=== PATIENT | male | born 1960 | race Caucasian/White ===

== ENCOUNTER 2018-01-04 14:11 | Day surgery (SDC) | payer OTHER, SELFPAY ==
[2018-01-03 13:51] VITALS: BMI 26.4
[2018-01-04 14:48] VITALS: BP 116/72; PULSE 53; RESP 16; TEMP 36.6; O2SAT 100; BMI 26.4
[2018-01-04] MEDS: LACTATED RINGERS 1,000 ML 100 ML IV (15:19)
--- NOTE | 2018-01-04 16:10 | PM.PREOP ---
Pre-operative Note Interval Note Pre-op Check: Yes History & Physical exam performed today by Physician Changes: No
[2018-01-04] MEDS: CEFAZOLIN 2 GM/100 ML FROZ.PIGGY IV (16:25)
--- NOTE | 2018-01-04 16:41 | SUR.OPER ---
Supine on padded OR bed, head on pillow, arms secured on padded arm boards at <90 degrees abduction, legs uncrossed, safety belt at thigh, tape over blanket over lower legs.
[2018-01-04] MEDS: BUPIVACAINE 0.5% (PF) VIAL 30 ML INJ (16:56)
[2018-01-04 17:34] VITALS: BP 106/72; PULSE 72; RESP 12; TEMP 36.8; O2SAT 97
[2018-01-04 17:37] VITALS: BP 110/69; PULSE 66; RESP 14; O2SAT 96
[2018-01-04 17:41] VITALS: BP 107/77; PULSE 61; RESP 14; O2SAT 95
[2018-01-04 17:46] VITALS: BP 100/73; PULSE 58; RESP 16; O2SAT 95
--- NOTE | 2018-01-04 17:47 | P.OP_ITS ---
Operative Date/Time/Diagnoses Date of procedure: 01/04/18 Time of procedure: 17:28 Pre-op diagnosis: Reducible left inguinal hernia Post-op diagnosis: same (Direct hernia) Procedure & Clinicians Procedure: Repair of left inguinal hernia using plug and patch technique Same procedure as scheduled: Yes Surgeon: Carrington Montgomery Click Yes if Unassisted: Yes Anesthesia Type: General Operative Notes Findings: Direct hernia. Lipoma of the cord. Closure Type: primary Specimen(s): none sent Implants & Drains: Mesh medium plug Estimated Blood Loss (mL): 10 Blood products transfused: none Procedure in detail: The patient was placed supine on the operating room table and underwent general LMA anesthesia. He was prepped and draped in the usual fashion. A transverse incision was made overlying the internal ring and carried down to the level of the external oblique. The external oblique was opened parallel with its fibers through the external ring. The cord structures were elevated. The cremaster was opened proximally and search made for an indirect sac. None was found that there was a lipoma of the cord that was from surrounding structures and ligated proximally. Distal portion was removed. A medium plug was placed in the defect created and tacked into place with interrupted 0 Ethibond suture. The floor was examined and was found to be quite attenuated. I use it 0 Ethibond suture to reapproximate the medial transversalis to the lateral iliopubic tract an edge of inguinal ligament.. A patch was placed across the floor and tacked at the pubic tubercle, the posterior lamella of the anterior rectus sheath, the ilioinguinal ligament, and superior lateral to the cord. The opening was modified as necessary to prevent tight constriction of the cord. Sutures of 0 Tycron were used to secure the mesh. The external oblique was closed with a running 3 0 Polysorb. The subcu was closed with interrupted 3 0 Polysorb. The skin was closed with a running 4 0 Polysorb subcuticular stitch and Steri-Strips. Dressing was applied , the patient was awakened, and the patient was taken to the recovery area in good condition. Complications: none Condition: stable Disposition: PACU Plan for aftercare: Two weeks January 17 and at 1:15 p.m.
[2018-01-04] MEDS: HYDROCODONE/ACET 5/325 TABLET 1 TAB PO (18:10)
[2018-01-04 18:16] VITALS: TEMP 36.7
== END 2018-01-04 18:25 | disposition home or self-care (01) ==
PROVIDERS: Visit Provider Specialist
PROC: (CPT 49505; principal; 2018-01-04 15:45)
DX: K40.90 Unilateral inguinal hernia, without obstruction or gangrene, not specified as recurrent (principal); D17.6 Benign lipomatous neoplasm of spermatic cord
CPT/HCPCS: 49505; C1781; J0690; J1100; J2405; J2704; J3010

== ENCOUNTER → 2020-06-02 07:02 | Outpatient (CLI) | payer BC, SELFPAY ==
[2020-06-02 08:01] LABS: Add Manual Diff / Slide Review NO; Basophils Absolute Auto 0 /uL (0-100); Basophils Percent Auto 0.6 % (0-2); Eosinophils Absolute Auto 200 /uL (0-450); Eosinophils Percent Auto 5.4 % (2-4); Hematocrit 41.6 % (41-53); Hemoglobin 14.1 g/dL (13.5-17.5); Lymphocytes Absolute Auto 1200 /uL (1100-4500); Lymphocytes Percent Auto 26.5 % (25-40); Mean Corpuscular Hemoglobin 29.6 PG (26-34); Monocytes Absolute Auto 200 /uL (0-900); Monocytes Percent Auto 4.7 % (3-14); Neutrophils Absolute Auto 2700 /uL (1500-7000); Neutrophils Percent Auto 62.8 % (50-75); Platelet Count 192 X10^3/uL (150-400); Red Blood Cell Count 4.78 X10^6/uL (4.5-5.9); Red Cell Distribution Width 13.8 % (11.6-14.8); White Blood Cell Count 4.4 X10^3/uL (4.5-11.0)
[2020-06-02 08:25] LABS: Alanine Aminotransferase 29 IU/L (<50); Albumin 4.1 g/dL (3.5-5.0); Albumin Globulin Ratio 1.6 (1.0-2.8); Alkaline Phosphatase 76 U/L (38-126); Aspartate Aminotransferase 34 IU/L (17-59); BUN Creatinine Ratio 21.4 (6-22); Bilirubin Total 0.3 mg/dL (0.2-1.3); Blood Urea Nitrogen 18 mg/dL (9-20); Calcium 8.9 mg/dL (8.4-10.2); Carbon Dioxide 28 mmol/L (22-32); Chloride 105 mmol/L (98-107); Cholesterol 188 mg/dL (140-199); Estimated Glomerular Filt Rate > 60.0 mL/min (>60); Globulin 2.5 g/dL (1.7-4.1); Glucose 98 mg/dL (80-110); HDL Cholesterol 77 mg/dL (40-60); HEMOLYSIS < 15 (0-50); LDL Cholesterol Calculated 104 mg/dL (<100); Potassium 4.3 mmol/L (3.4-5.1); Sodium 137 mmol/L (137-145); Total Protein 6.6 g/dL (6.3-8.2); Triglycerides 36 mg/dL (35-150)
[2020-06-02 08:53] LABS: Prostate Specific Antigen 0.439 ng/mL (0.10-4.00)
== END ==
PROVIDERS: PCP Nurse Practitioner; Referring Provider Nurse Practitioner; Visit Provider Nurse Practitioner
DX: Z00.00 Encounter for general adult medical examination without abnormal findings (principal)
CPT/HCPCS: 36415; 80053; 80061; 84153; 85025

== ENCOUNTER → 2020-09-02 10:37 | Outpatient (CLI) | payer OTHER, SELFPAY ==
--- NOTE | 2020-09-02 | DI.US.S_ITS ---
PROCEDURE: US RENAL COMPLETE INDICATIONS: Retention of urine, unspecified TECHNIQUE: Real-time scanning was performed of the kidneys and bladder, with image documentation. COMPARISON: None. FINDINGS: Kidneys: Kidneys are normal in size. Right kidney measures 11.3 cm long; left kidney measures 12.2 cm long. Right renal cortical thickness is 1.6 cm; left renal cortical thickness is 1.7 cm. Renal cortical echotexture is normal. No hydronephrosis or nephrolithiasis. No suspicious solid mass lesions. Right parapelvic cysts are present. Left cyst is noted measuring 2.5 x 2.4 x 2.5 cc. Bladder: Pre-void bladder volume is 530 mL. Post-void residual is 342 mL. Pre-void images demonstrate no intraluminal masses or stones. On pre-void images, neitherureteral jets are noted with color Doppler interrogation. (Of note, ureteral jets may not be detectable in up to 25% of cases due to insufficient differences in specific gravity between ureteral and bladder urine). Bladder diverticulum. There is suspected presence of penile prosthesis. Miscellaneous: No free pelvic fluid. IMPRESSION: 1. Simple left renal cyst. 2. Bladder diverticulum. Dictated by: Laverne Foote M.D. on 09/02/2020 at 16:02 Approved by: Laverne Foote M.D. on 09/02/2020 at 16:09
== END ==
PROVIDERS: PCP Nurse Practitioner; Referring Provider Physician Assistant Medical; Visit Provider Physician Assistant Medical
DX: R33.9 Retention of urine, unspecified (principal)
CPT/HCPCS: 76770

== ENCOUNTER 2021-06-08 23:49 | Emergency (ER) | payer OTHER, SELFPAY ==
[2021-06-08 23:50] VITALS: BP 151/85; PULSE 64; RESP 14; TEMP 36.6; O2SAT 95; BMI 25.7
--- NOTE | 2021-06-09 00:02 | ED_ITS ---
HPI - Male Genitourinary General Chief complaint: Urogenital-Male Stated complaint: NEEDS A CATHERTER PUT IN PER DOCTOR Time Seen by Provider: 06/08/21 23:52 History of Present Illness HPI Narrative: 60-year-old male nonsmoker with history of recent urologic procedure presents with his in the chief complaint of inability to urinate since about 8:00 p.m.. Last week he was seen and evaluated by the [facility] and had instrumentation including a urolift which went well. He had a catheter in over the course of the weekend and was seen in the office on Monday morning. Per the patient he passed a post void residual without difficulty and was doing well until this evening. He contacted his urologist and was encouraged to come see us for help. He has fullness and difficulty starting a urine stream worsening over the course of the evening. He denies fever or chills. He has no nausea, vomiting or diarrhea. Related Data Home Medications Medication Instructions Recorded Confirmed fluticasone propionate 50 1 spray INTRANASAL DAILY 01/04/18 03/17/21 mcg/actuation nasal spray,suspension (Flonase Allergy Relief) Resmed Airsense 10 CPAP #1 ea 07/17/18 03/17/21 tamsulosin 0.4 mg capsule 0.8 mg PO DAILY cap 03/17/21 03/17/21 Previous Rx's Medication Instructions Recorded oxycodone-acetaminophen 5 mg-325 See Rx Instructions .ROUTE 01/04/18 mg tablet (Percocet) .COMPLEX PRN #14 tab Allergies Allergy/AdvReac Type Severity Reaction Status Date / Time No Known Drug Allergies Allergy Verified 03/17/21 16:33 Review of Systems Review of Systems Narrative: GENERAL: Denies chills, fatigue, malaise, fever, sweats. HEENT: Denies sinus pain, ear pain, sore throat, difficulty swallowing, dizziness. RESPIRATORY: Denies dyspnea, cough, wheezing, hemoptysis, sputum. CARDIOVASCULAR: Denies chest pain, palpitations, orthopnea, edema, GASTROINTESTINAL: Denies nausea, vomiting, abdominal pain, diarrhea, constipation, melena. : See HPI MUSCULOSKELETAL: denies weakness, joint pain, or bony pain SKIN: Denies rash, skin lesions, or other NEUROLOGIC: Denies weakness, headache, numbness, change in speech, confusion, seizures, incoordination. PSYCHIATRIC: No concerning psychosocial issues. 12 point review of systems is negative except for those stated above Patient History Medical History (Updated 06/09/21 @ 00:42 by Gerardo Chairez DO) BPH (benign prostatic hyperplasia) Surgical History H/O: vasectomy History of umbilical hernia repair Family History Father Hypertension Prostate cancer Sister Breast cancer Social History marital status: household members: spouse occupational status: employed Smoking Status: Never smoker substance use type: does not use Smoking Status: Never smoker Substance Use Type: does not use Exam Narrative Exam Narrative: GEN: AOx3 and in mild distress EYES: Pupils are equal, round, and reactive to light and accommodation. Extraoccular muscles are intact bilaterally. There is no subconjunctival hemorrhage or exudate. CHEST: Lungs are clear to auscultation bilaterally and free of wheezes, rales, or rhonchi. Heart rate is regular rhythm, there are no murmurs, clicks, rubs, or gallops. There is no chest wall tenderness. ABD: Abdomen is minimally distended overlying the bladder with tenderness. There is no guarding or rebound. Bowel sounds are normal in all 4 quadrants. There is no mass or organomegaly. EXT: Full painless ROM of all extremities with no loss of sensation or strength. SKIN: Warm, pink, and dry. No erythema or rash Initial Vital Signs Initial Vital Signs: Vital Signs Temperature 97.9 F 06/08/21 23:50 Pulse Rate 64 06/08/21 23:50 Respiratory Rate 14 06/08/21 23:50 Blood Pressure 151/85 H 06/08/21 23:50 Pulse Oximetry 95 06/08/21 23:50 Course Course Course Narrative: Bladder scan notes over [address] [place] catheter, which is done successfully and results and a near immediate and complete resolution of symptoms. MDM - Male Genitourinary Lab Data Labs: Lab Results 06/09/21 Range/Units 00:15 Urine Color Yellow Urine Appearance Cloudy Urine pH 5.0 (4.5-8.0) Ur Specific [place] 1.015 (1.000-1.035) Urine Protein 1+ H (Negative) Urine Glucose (UA) Negative (Negative) g/dL Urine Ketones Negative (NEGATIVE) Urine Occult Blood 3+ H (Negative) Urine Nitrate Negative (Negative) Urine Bilirubin Negative (NEGATIVE) Urine Urobilinogen 0.2 (0.2) E.U./dL Ur Leukocyte Esterase Negative (NEGATIVE) Urine RBC 30-100/hpf H (0-5/HPF) Urine WBC 0-1/hpf (0-5/HPF) Ur Squamous Epith Cells 0-1 /hpf (0-5/HPF) Urine Bacteria Few (2-10) H (None) Urine Mucus 1+ H (Negative) Ur Culture Indicated? Cult not indicated Discharge Plan Departure Patient Disposition: Home Clinical Impression: Acute retention of urine Instructions: DI for Urinary Retention in Men Activity Restrictions/Additional Instructions: *You have been diagnosed with [acute urinary retention] *What to do: *Please continue to take your regular medications as directed. [ ] New medication prescriptions sent to your pharmacy: [ ] [ ] New medication written as a paper prescription [x ] No new medications given *Please follow up with your primary care provider in 2-3 days, call for an appointment. Let them know you were seen in the Emergency Department and that we ask that you be seen in follow up. We will electronically transmit a record of today's note if your PCP is in our system *If you do not have a primary care provider please contact the [facility] Resource line at [phone]. They will ask some questions about your medical history and help get you set up with a doctor in the community. *Return to Emergency Department if you should have any new, worsening or concerning symptoms, such as [fever greater than 101 F, shaking chills, worsening pain, persistent vomiting or other bothersome symptoms] Prescriptions: No Action tamsulosin 0.4 mg capsule 0.8 mg PO DAILY 0RF fluticasone propionate [Flonase Allergy Relief] 50 mcg/actuation [place],Suspension 1 spray INTRANASAL DAILY 0RF oxycodone-acetaminophen [Percocet] 5-325 mg tablet See Rx Instructions .ROUTE .COMPLEX PRN (Reason: painful procedure) Qty: 14 0RF Rx Instructions: Take 1 or 2 pills every 6 hr if needed for pain (DME) Resmed Airsense 10 CPAP Qty: 1 0RF Dose Instruction: As directed Label Comments: Pressure: 5-10 cmH2O DME: [facility] Rx Instructions: As directed Referrals: Taylor Zaragoza ARNP [Primary Care Provider] -
[2021-06-09 00:37] LABS: Appearance Urine UA CLOUDY; Bilirubin Urine UA NEGATIVE (NEGATIVE); Color Urine UA YELLOW; Glucose Urine UA NEGATIVE (Negative); Ketones Urine UA NEGATIVE (NEGATIVE); Leukocyte Esterase Urine UA NEGATIVE (NEGATIVE); Nitrite Urine UA NEGATIVE (Negative); Occult Blood Urine UA 3+ (Negative); Protein Urine UA 1+ (Negative); Specific Gravity Urine UA 1.015 (1.000-1.035); Urobilinogen Urine UA 0.2 E.U./dL (0.2)
[2021-06-09 00:45] LABS: Bacteria Urine Few (2-10); RBC Urine 30-100/HPF (0-5/HPF); Squamous Epithelial Cell Urine 0-1 /HPF (0-5/HPF); WBC Urine 0-1/HPF (0-5/HPF)
[2021-06-09 00:46] LABS: Culture Indicated Urine Cult Not Indicated; Mucus Urine 1+ (Negative)
== END 2021-06-09 01:08 | disposition home or self-care (01) ==
PROVIDERS: Emergency Provider Emergency Medicine; PCP Nurse Practitioner
DX: R33.9 Retention of urine, unspecified (principal)
CPT/HCPCS: 51702; 51798; 81001; 99283

== ENCOUNTER → 2022-12-21 07:13 | Outpatient (CLI) | payer OTHER, SELFPAY ==
[2022-12-21 07:50] LABS: Add Manual Diff / Slide Review NO; Basophils Absolute Auto 0 /uL (0-100); Basophils Percent Auto 0.7 % (0-2); Eosinophils Absolute Auto 200 /uL (0-450); Eosinophils Percent Auto 3.9 % (2-4); Hematocrit 41.7 % (41-53); Hemoglobin 14.3 g/dL (13.5-17.5); Lymphocytes Absolute Auto 1000 /uL (1100-4500); Lymphocytes Percent Auto 20.8 % (25-40); Mean Corpuscular HGB Conc 34.3 % (30-36); Mean Corpuscular Hemoglobin 29.7 PG (26-34); Mean Corpuscular Volume 86.6 fL (80-100); Monocytes Absolute Auto 300 /uL (0-900); Monocytes Percent Auto 5.4 % (3-14); Neutrophils Absolute Auto 3500 /uL (1500-7000); Neutrophils Percent Auto 69.2 % (50-75); Platelet Count 219 X10^3/uL (150-400); Red Blood Cell Count 4.81 X10^6/uL (4.5-5.9); Red Cell Distribution Width 14.8 % (11.6-14.8)
[2022-12-21 08:13] LABS: Alanine Aminotransferase 23 IU/L (<50); Albumin 4.1 g/dL (3.5-5.0); Albumin Globulin Ratio 1.4 (1.0-2.8); Alkaline Phosphatase 69 U/L (38-126); Aspartate Aminotransferase 29 IU/L (17-59); BUN Creatinine Ratio 17.7 (6-22); Bilirubin Total 0.6 mg/dL (0.2-1.3); Blood Urea Nitrogen 14 mg/dL (9-20); Carbon Dioxide 27 mmol/L (22-32); Chloride 102 mmol/L (98-107); Cholesterol 210 mg/dL (140-199); Estimated Glomerular Filt Rate > 60 mL/min (>60); Globulin 2.9 g/dL (1.7-4.1); Glucose 98 mg/dL (80-110); HDL Cholesterol 69 mg/dL (40-60); HEMOLYSIS < 15 (0-50); LDL Cholesterol Calculated 128 mg/dL (<100); Potassium 4.5 mmol/L (3.4-5.1); Sodium 136 mmol/L (137-145); Triglycerides 63 mg/dL (35-150)
[2022-12-21 08:43] LABS: Prostate Specific Antigen 0.169 ng/mL (0.10-4.00)
[2022-12-22 16:57] LABS: HIV 1 & 2 Ab/Ag 4th Gen Combo NEGATIVE (NEGATIVE); Hep C Virus Ab w/Reflex Quant NEGATIVE s/c (NEGATIVE)
== END ==
PROVIDERS: PCP Family Medicine; Referring Provider Family Medicine; Visit Provider Family Medicine
DX: Z91.09 Other allergy status, other than to drugs and biological substances (principal); G47.33 Obstructive sleep apnea (adult) (pediatric); Z98.890 Other specified postprocedural states; Z00.00 Encounter for general adult medical examination without abnormal findings; N40.0 Benign prostatic hyperplasia without lower urinary tract symptoms
CPT/HCPCS: 36415; 80053; 80061; 83036; 84153; 85025; 86803; 87389

== ENCOUNTER 2023-10-03 14:11 | Day surgery (SDC) | payer OTHER, MEDICARE, SELFPAY ==
--- NOTE | 2023-10-03 | PATH_ITS ---
[facility] Accession Number: [id number] No. of containers..01 Tissue . 01 Material submitted: . colon - SIGMOID POLYP . 01 Diagnosis: SIGMOID COLON, POLYP: Hyperplastic polyp. [facility] 10/06/2023 1012 Local . 01 Electronically signed: . Vijaya Trejo MD, Pathologist NPI- [id number] . 01 Gross description: . Received in formalin with two patient identifiers and sigmoid polyp, is a single nichols soft tissue fragment, 0.4 cm in greatest dimension. Submitted in A1. ([id number]) /MRV 10/04/2023 1732 Local . 01 Pathologist provided ICD-10: K63.5 . 01 CPT . 999686 Specimen Comment: A courtesy copy of this report has been sent to [phone] Performed at: [address] [facility] [address], [place], [place] [id number] MD Joshua Guerra MD Phone: [phone]
[2023-10-03 14:24] VITALS: BP 125/75; PULSE 16; RESP 51; TEMP 36.4; O2SAT 99
[2023-10-03] MEDS: LACTATED RINGERS 1,000 ML 42 ML IV (14:33)
--- NOTE | 2023-10-03 15:00 | P.HP_ITS ---
History of Present Illness History of Present Illness Date Patient Seen: 10/03/23 Time Patient Seen: 15:01 Chief complaint: Screening Colonoscopy Narrative: 63-year-old man here for screening colonoscopy. Last colonoscopy 12 years ago normal. No family history of colon cancer. No abdominal concerns today. [facility] Medical History (Updated 12/27/22 @ 19:59 by Tram Anton) Allergies Hearing loss Skin cancer Obstructive sleep apnea BPH (benign prostatic hyperplasia) Surgical History (Updated 12/27/22 @ 19:59 by Tram Anton) Anesthesia H/O right knee surgery History of prostate surgery (~08/2021) H/O: vasectomy History of umbilical hernia repair Family History (Updated 12/27/22 @ 19:59 by Tram Anton) Father Hypertension Prostate cancer Sister Breast cancer Social History marital status: household members: spouse occupational status: employed Smoking Status: Former smoker alcohol intake: current substance use type: does not use Meds Home Medications and Allergies Home Medications Medication Instructions Recorded Confirmed Type fluticasone propionate 50 1 spray intranasal DAILY 01/04/18 10/03/23 History mcg/actuation nasal spray,suspension (Flonase Allergy Relief) [place] 2 #1 ea 09/15/21 05/20/23 History finasteride 5 mg tablet 5 mg PO DAILY 09/15/21 10/03/23 History Allergies Allergy/AdvReac Type Severity Reaction Status Date / Time No Known Drug Allergies Allergy Verified 05/20/23 07:16 Exam Vital Signs (past 8 hours): - 10/03/23 14:24 Temperature 97.6 F Pulse Rate 16 L Respiratory Rate 51 H Blood Pressure 125/75 Pulse Oximetry 99 Oxygen Delivery Method Room Air Oxygen Delivery Method Room Air Narrative Exam Narrative: General adult man alert oriented no acute distress Chest nonlabored respiration Extremities warm well perfused Assessment & Plan Assessment & Plan narrative: The patient requires colorectal screening and colonoscopy is recommended. Technical details were discussed. Risks, benefits, alternatives explained. Risks including but not limited to myocardial infarction, aspiration, bleeding, pain, missed lesion, incomplete examination, need for further radiographic studies, intestinal injury, and need for major abdominal surgery were discussed. All questions were answered to their satisfaction, and they are in agreement with this plan.
--- NOTE | 2023-10-03 15:01 | P.OP.COLON_ITS ---
Operative Date/Time/Diagnoses Date of procedure: 10/03/23 Time of procedure: 15:01 Pre-op diagnosis: Colorectal screening Post-op diagnosis: other (Colonic polyp x1) Procedure & Clinicians Study performed: Screening colonoscopy Same procedure as scheduled: Yes Indications: Colorectal screening Surgeon: Cleveland Corcoran Procedure Notes Procedure in detail: The history and physical was performed/updated and the patient is ASA class is 2. The procedure was discussed in detail with the patient. Potential risks complications including infection, bleeding, missed diagnosis, perforation, need for surgery, and were explained. Their questions were answered and informed consent was obtained. Patient was brought to the procedure room and placed standard monitoring equipment. The patient's vital signs were monitored continuously throughout the entire procedure. Prior to starting time-out was performed. The patient was placed in the left lateral recumbent position. Procedural sedation was administered by anesthesia. Examination began with a thorough inspection of the perianal area there was no evidence of fissures, fistulae, external hemorrhoids or cutaneous malignancy. The colonoscopy scope was then placed into the anal ca nal and was advanced to the cecum, which was identified by the ileocecal valve, the appendiceal orifice and the confluence of the taenia. The scope was then slowly withdrawn examining colon thoroughly in all directions, irrigating it of any residual stool. The scope was retroflexed within the rectum The patient tolerated the procedure well. They will be discharged once criteria are met. The prep was of good/excellent quality. The withdrawl time was 6 minutes. FINDINGS * Sigmoid polyp 3 mm removed with biopsy forceps * Diverticulosis of descending colon. Specimen(s): other (Sigmoid polyp) Impression: Colonic polyp x1 Post-procedure Recommendations: High fiber diet Plan for aftercare: Follow up is dependent on pathology findings likely 5 years Disposition: same day surgery
[2023-10-03 15:31] VITALS: BP 120/72; PULSE 65; RESP 18; TEMP 36.6; O2SAT 98
[2023-10-03 15:37] VITALS: BP 118/77; PULSE 65; RESP 17; TEMP 36.6; O2SAT 97
[2023-10-03 15:42] VITALS: BP 107/62; PULSE 60; RESP 20; TEMP 36.5; O2SAT 97
== END 2023-10-03 15:55 | disposition home or self-care (01) ==
PROVIDERS: PCP Family Medicine; Referring Provider Surgery; Visit Provider Surgery
PROC: 0DJD8ZZ Inspection of Lower Intestinal Tract, Via Natural or Artificial Opening Endoscopic (ICD-10-PCS; CPT 45378; principal; 2023-10-03 15:15)
DX: Z12.11 Encounter for screening for malignant neoplasm of colon (principal); K57.30 Diverticulosis of large intestine without perforation or abscess without bleeding; K63.5 Polyp of colon
CPT/HCPCS: 45380; J2704

== ENCOUNTER → 2023-11-29 06:57 | Outpatient (CLI) | payer OTHER, MEDICARE, SELFPAY ==
[2023-11-29 08:06] LABS: Add Manual Diff / Slide Review NO; Basophils Absolute Auto 0 /uL (0-100); Basophils Percent Auto 0.5 % (0-2); Eosinophils Absolute Auto 300 /uL (0-450); Eosinophils Percent Auto 5.1 % (2-4); Hematocrit 39.5 % (41-53); Hemoglobin 13.5 g/dL (13.5-17.5); Lymphocytes Absolute Auto 1600 /uL (1100-4500); Lymphocytes Percent Auto 30.5 % (25-40); Mean Corpuscular HGB Conc 34.2 % (30-36); Mean Corpuscular Hemoglobin 29.7 PG (26-34); Mean Corpuscular Volume 86.8 fL (80-100); Monocytes Absolute Auto 300 /uL (0-900); Monocytes Percent Auto 5.2 % (3-14); Neutrophils Absolute Auto 3100 /uL (1500-7000); Neutrophils Percent Auto 58.7 % (50-75); Platelet Count 221 X10^3/uL (150-400); Red Blood Cell Count 4.55 X10^6/uL (4.5-5.9); Red Cell Distribution Width 14.3 % (11.6-14.8); White Blood Cell Count 5.3 X10^3/uL (4.5-11.0)
[2023-11-29 08:39] LABS: Blood Urea Nitrogen 18 mg/dL (9-20); Calcium 8.8 mg/dL (8.4-10.2); Carbon Dioxide 25 mmol/L (22-32); Chloride 106 mmol/L (98-107); Cholesterol 191 mg/dL (140-199); Estimated Glomerular Filt Rate > 60 mL/min (>60); Glucose 100 mg/dL (80-110); HDL Cholesterol 72 mg/dL (40-60); HEMOLYSIS < 15 (0-50); LDL Cholesterol Calculated 106 mg/dL (<100); Potassium 4.4 mmol/L (3.4-5.1); Sodium 136 mmol/L (137-145); Triglycerides 63 mg/dL (35-150)
[2023-11-29 09:06] LABS: Prostate Specific Antigen 0.127 ng/mL (0.10-4.00)
== END ==
PROVIDERS: PCP Family Medicine; Referring Provider Family Medicine; Visit Provider Family Medicine
DX: Z13.9 Encounter for screening, unspecified (principal); E78.5 Hyperlipidemia, unspecified; N40.0 Benign prostatic hyperplasia without lower urinary tract symptoms
CPT/HCPCS: 36415; 80048; 80061; 84153; 85025

== ENCOUNTER 2024-10-28 17:53 | Emergency (ER) | payer MEDICARE, OTHER, SELFPAY ==
[2024-10-28 17:56] VITALS: BP 127/76; PULSE 72; RESP 18; TEMP 37; O2SAT 99; BMI 25.7
[2024-10-28 23:09] VITALS: PULSE 64; O2SAT 99
[2024-10-28 23:10] VITALS: BP 131/78; PULSE 63; RESP 16; O2SAT 99
[2024-10-28 23:30] VITALS: BP 121/77; RESP 16; O2SAT 97
[2024-10-29] VITALS: BP 116/70; PULSE 60; RESP 16; O2SAT 95
--- NOTE | 2024-10-29 00:20 | ED.BACK ---
HPI - Back Pain/Injury General Chief Complaint: Back Pain/Injury Stated Complaint: lower back pain Time Seen by Provider: 10/28/24 23:52 Source: patient and family History of Present Illness HPI Narrative: 64-year-old male with no prior chronic back pain, earlier today was lifting a small sailboat and at a different time earlier today lifting a propane tank, felt discomfort right lower back. No history of previous back injuries or surgeries. No history of known cancers, IV drug use, fevers or chills, weakness to legs, numbness to legs, incontinence of urine or stool. No blunt trauma injury. Related Data Home Medications ?Medication ?Instructions ?Recorded ?Confirmed fluticasone propionate 50 1 spray intranasal DAILY 01/04/18 12/15/23 mcg/actuation nasal spray,suspension (Flonase Allergy Relief) [place] 2 #1 ea 09/15/21 12/15/23 finasteride 5 mg tablet 5 mg PO DAILY 09/15/21 12/15/23 Previous Rx's ?Medication ?Instructions ?Recorded hydrocodone 5 mg-acetaminophen 325 1 tab PO Q6H PRN pain #10 tabs 10/29/24 mg tablet methocarbamol 500 mg tablet 500 mg PO TID 7 days #21 tabs 10/29/24 naproxen 500 mg tablet 500 mg PO BID 7 days #14 tabs 10/29/24 Allergies Allergy/AdvReac Type Severity Reaction Status Date / Time No Known Drug Allergies Allergy Verified 10/28/24 17:56 Patient History Medical History (Updated 10/29/24 @ 00:39 by Tremayne Quinteros MD) Allergies Hearing loss Skin cancer Obstructive sleep apnea BPH (benign prostatic hyperplasia) Surgical History (Updated 12/27/22 @ 19:59 by Tram Anton) Anesthesia H/O right knee surgery History of prostate surgery (~08/2021) H/O: vasectomy History of umbilical hernia repair Family History (Updated 12/27/22 @ 19:59 by Tram Anton) Father Hypertension Prostate cancer Sister Breast cancer Social History marital status: household members: spouse occupational status: employed Smoking Status: Never smoker alcohol intake: current substance use type: does not use Smoking Status: Never smoker alcohol intake frequency: a few times a week Exam Narrative Exam Narrative: GENERAL: Well-developed patient, in mild distress. HEAD: Atraumatic. Normocephalic. EYES: Pupils equal round and reactive. Extraocular motions intact. No scleral icterus. No injection or drainage. ENT: Nose without bleeding, purulent drainage. Throat without erythema, tonsillar hypertrophy or exudate. Airway patent. NECK: Trachea midline. Non tender CARDIOVASCULAR: Regular rate and rhythm without murmurs, gallops, or rubs. RESPIRATORY: Clear to auscultation. Breath sounds equal bilaterally. No wheezes, rales, or rhonchi. GASTROINTESTINAL: Abdomen soft, non-tender, nondistended. EXTREMITIES: No edema or joint tenderness. BACK: Nontender without deformity or crepitance. No flank tenderness. Right low paraspinous lumbar muscle tenderness. No midline tenderness to lumbar spine or thoracic spine. No skin changes in affected area, no redness or vesicles. NEURO: AOx3. Motor functions grossly nonfocal. SKIN: No rash or erythema of visible areas Initial Vital Signs Initial Vital Signs: Vital Signs Temperature 98.6 F 10/28/24 17:56 Pulse Rate 72 10/28/24 17:56 Respiratory Rate 18 10/28/24 17:56 Blood Pressure 127/76 10/28/24 17:56 Pulse Oximetry 99 10/28/24 17:56 Oxygen Delivery Method Room Air 10/28/24 17:56 Course Orders Ordered: Discontinued Medications Hydrocodone Bitart/Acetaminophen (Hydrocodone/Acet 5/325 Prepack) 1 bottle MISC DIRECTED ONE Stop: 10/29/24 00:41 Last Admin: 10/29/24 01:02 Dose: 1 bottle Documented By: HIMANSHU Hydromorphone HCl (Hydromorphone 1 Mg Inj) 1 mg IM NOW ONE Stop: 10/29/24 00:31 Last Admin: 10/29/24 01:04 Dose: 1 mg Documented By: HIMANSHU Methocarbamol (Methocarbamol 500 Mg Tablet) 500 mg PO NOW ONE Stop: 10/29/24 00:31 Last Admin: 10/29/24 01:03 Dose: 500 mg Documented By: HIMANSHU Naproxen (Naproxen 250 Mg Tablet) 500 mg PO NOW ONE Stop: 10/29/24 00:31 Last Admin: 10/29/24 01:03 Dose: 500 mg Documented By: HIMANSHU Vital Signs Vital signs: Vital Signs - 8 hr 10/28/24 23:09 10/28/24 23:10 10/28/24 23:10 Pulse Rate 64 63 Respiratory Rate 16 Blood Pressure 131/78 Pulse Oximetry 99 99 Oxygen Delivery Method 10/28/24 23:30 10/28/24 23:30 10/29/24 00:00 Pulse Rate Respiratory Rate 16 Blood Pressure 121/77 116/70 Pulse Oximetry 97 Oxygen Delivery Method 10/29/24 00:00 10/29/24 00:30 10/29/24 00:30 Pulse Rate 60 60 Respiratory Rate 16 16 Blood Pressure 121/75 Pulse Oximetry 95 98 Oxygen Delivery Method 10/29/24 02:10 10/29/24 02:37 Pulse Rate 84 56 L Respiratory Rate 15 15 Blood Pressure 121/82 Pulse Oximetry 95 96 Oxygen Delivery Method Room Air MDM - Back Pain/Injury MDM Narrative Medical decision making narrative: Right lower lumbar strain symptoms after lifting small cell elbow and later lifting propane tank earlier today. No radiculopathy symptoms, no red flags low back pain, no incontinence or cauda equina like symptoms. IM Dilaudid, oral naproxen, oral Robaxin. Symptoms improved. Patient ambulatory. Discharge prescription sent to his pharmacy. Advised to follow up with his PCP later this week if not improving. Return precautions discussed. Discharged home with . Discharge Plan Departure Patient Disposition: Home Clinical Impression: Strain of lumbar spine Activity Restrictions/Additional Instructions: Right lower back pain after lifting see elbow and separate lifting event propane tank. No prior back problems or surgeries or injections. No weakness or numbness of the legs, no incontinence of urine or incontinence of stool. No treatments that is 4 prior to arrival. Pain medication and muscle relaxant and anti-inflammatory medications given. Trial of oral medications anti-inflammatory, muscle relaxant and analgesics as needed. Recheck later this week with your regular provider. Advanced spinal imaging not indicated at this time, but could be indicated if symptoms are not improving in are persisting, or if there is a change or worsening of your condition or symptoms. Recheck with your regular doctor later this week. Return to this/nearest emergency department for any change worsening symptoms or any concerns prior. Prescriptions: New naproxen 500 mg tablet 500 mg PO BID 7 Days Qty: 14 0RF methocarbamol 500 mg tablet 500 mg PO TID 7 Days Qty: 21 0RF hydrocodone-acetaminophen 5-325 mg tablet 1 tab PO Q6H PRN (Reason: pain) Qty: 10 0RF No Action fluticasone propionate [Flonase Allergy Relief] 50 mcg/actuation [place],Suspension 1 spray INTRANASAL DAILY (DME) Dream [place] 2 Qty: 1 Dose Instruction: As directed Patient Comments: Pressure: 5-10 cmH2O DME: [facility] Rx Instructions: As directed finasteride 5 mg tablet 5 mg PO DAILY Referrals: Genaro Carter MD [Primary Care Provider, Family Practice] Stand Alone Forms: Patient Portal/API
[2024-10-29 00:30] VITALS: BP 121/75; PULSE 60; RESP 16; O2SAT 98
[2024-10-29] MEDS: HYDROCODONE/ACET 5/325 PREPACK 1 BOTTLE MISC (01:02)
[2024-10-29] MEDS: NAPROXEN 250 MG TABLET 500 MG PO (01:03)
[2024-10-29] MEDS: HYDROMORPHONE 1 MG INJ IM (01:04)
[2024-10-29 02:10] VITALS: PULSE 84; RESP 15; O2SAT 95
[2024-10-29 02:37] VITALS: BP 121/82; PULSE 56; RESP 15; O2SAT 96
== END 2024-10-29 02:20 | disposition home or self-care (01) ==
PROVIDERS: Emergency Provider Emergency Medicine; PCP Family Medicine
DX: S39.012A Strain of muscle, fascia and tendon of lower back, initial encounter (principal); X50.9XXA Other and unspecified overexertion or strenuous movements or postures, initial encounter
CPT/HCPCS: 96372; 99283; J1171

== ENCOUNTER → 2024-11-01 14:46 | Outpatient (CLI) | payer MEDICARE, OTHER, SELFPAY ==
--- NOTE | 2024-11-01 14:48 | DI.RAD.S_ITS ---
PROCEDURE: XR LUMBAR SPINE 2-3V INDICATIONS: right sided back pain TECHNIQUE: Three views of the lumbar spine were acquired. COMPARISON: None. FINDINGS: Bones: 5 [id number] vertebrae are present. Retrolisthesis of L2 on L3 measures 5 mm. There is normal bony alignment. No vertebral body compression fractures. No suspicious bony lesions. Soft tissues: Overlying bowel gas pattern is normal. No suspicious soft tissue calcifications. IMPRESSION: No acute bony abnormality. Dictated by: Chico Roy M.D. on 11/02/2024 at 23:40 Approved by: Chico Roy M.D. on 11/02/2024 at 23:41
== END ==
PROVIDERS: PCP Family Medicine; Referring Provider Family Medicine; Visit Provider Family Medicine
DX: M54.50 Low back pain, unspecified (principal)
CPT/HCPCS: 72100

== ENCOUNTER → 2024-11-05 16:43 | Outpatient (CLI) | payer MEDICARE, OTHER, SELFPAY ==
--- NOTE | 2024-11-05 16:49 | DI.MRI.S_ITS ---
PROCEDURE: MR LUMBAR SPINE WO CON INDICATIONS: right side back TECHNIQUE: Noncontrast sagittal T1 spin echo and T2 fast echo, sagittal STIR, and T2 fast spin echo through the lumbar spine. In cases with scoliosis, additional coronal T2 fast spin echo may be performed. COMPARISON: [facility], CR, XR LUMBAR SPINE 2-3V, 11/01/2024, 14:49. FINDINGS: Image quality: This examination is limited by involuntary motion artifact. Alignment and Curvature: There is minimal retrolisthesis seen at the L2-L3 level. Bone Marrow: Marrow is of normal overall signal. No acute vertebral body compression fractures. Spinal Cord: Conus medullaris terminates at the L1 level. Visualized cord demonstrates normal signal and size. Paraspinous Soft Tissues: No paravertebral masses. Along the medial aspect of the left kidney, there is a water signal cyst seen. T12-L1: Normal appearance. L1-L2: The disc height is well-preserved. Loss of disc signal is seen at this level. Mild generalized disc bulge is seen. Mild bilateral neural foraminal narrowing is seen. No central canal narrowing is seen. L2-L3: Moderate loss of disc height is seen. Loss of disc signal is seen. Moderate generalized disc bulge is seen. There is a superimposed central disc protrusion. Mild facet joint hypertrophy is seen. There is at least moderate bilateral neural foraminal narrowing. Moderate central canal narrowing is seen. L3-L4: Moderate loss of disc height is seen. Loss of disc signal is seen. Moderate disc bulge is seen, which is eccentric to the right. There is a right foraminal disc protrusion, as on series 6, image 3. At least moderate facet hypertrophy is seen. Associated hypertrophy of the ligamentum flavum can be seen. There is moderate to severe bilateral neural foraminal narrowing seen, with an associated degree of compression seen upon the exiting nerve roots. At least moderate central canal narrowing is seen, as on series 6, image 3. L4-L5: The disc height is well-preserved. Loss of disc signal is seen at this level. Mild generalized disc bulge is seen. Moderate facet joint hypertrophy is seen. There is moderate left-sided and at least moderate right-sided neural foraminal narrowing. There is a degree of compression seen upon the exiting right L4 nerve root. Mild to moderate central canal narrowing is seen. L5-S1: The disc height and disk signal are well-preserved. Mild generalized disc bulge is seen. Mild to moderate facet hypertrophy is seen. No significant neural foraminal or central canal narrowing can be seen. IMPRESSION: Multiple levels of lumbar spine degenerative change can be seen, which are overall worst at L2-L3. Dictated by: Jeremías Boles M.D. on 11/06/2024 at 15:15 Approved by: Jeremías Boles M.D. on 11/06/2024 at 15:22
== END ==
PROVIDERS: PCP Family Medicine; Referring Provider Family Medicine; Visit Provider Family Medicine
DX: M51.369 Other intervertebral disc degeneration, lumbar region without mention of lumbar back pain or lower extremity pain (principal); M48.062 Spinal stenosis, lumbar region with neurogenic claudication; M47.816 Spondylosis without myelopathy or radiculopathy, lumbar region; M51.379 Other intervertebral disc degeneration, lumbosacral region without mention of lumbar back pain or lower extremity pain; M47.817 Spondylosis without myelopathy or radiculopathy, lumbosacral region; N28.1 Cyst of kidney, acquired; M54.50 Low back pain, unspecified
CPT/HCPCS: 72148

== ENCOUNTER → 2024-12-26 07:06 | Outpatient (CLI) | payer MEDICARE, OTHER, SELFPAY ==
[2024-12-26 08:15] LABS: Cholesterol 190 mg/dL (140-199); HDL Cholesterol 85 mg/dL (40-60); Triglycerides 84 mg/dL (35-150)
[2024-12-26 08:48] LABS: Prostate Specific Antigen 0.410 ng/mL (0.10-4.00)
== END ==
PROVIDERS: Family Medicine; PCP Family Medicine; Referring Provider Family Medicine; Visit Provider Family Medicine
DX: E78.2 Mixed hyperlipidemia (principal); N40.0 Benign prostatic hyperplasia without lower urinary tract symptoms
CPT/HCPCS: 36415; 80061; 84153